=== PATIENT | female | born 1985 | race American Indian/Alaskan Native ===

== ENCOUNTER 2020-05-09 04:47 | Emergency (ER) | payer BC ==
[2020-05-09 06:30] LABS: Basophils # (Auto) 0.1 K/mm3 (0.0-0.1); Basophils % (Auto) 0.4 % (0.0-1.8); Hematocrit 39.5 % (30.3-42.9); Hemoglobin 12.9 gm/dl (10.1-14.3); Lymphocytes # (Auto) 0.9 K/mm3 (1.2-5.4); Lymphocytes % (Auto) 6.3 % (13.4-35.0); Mean Corpuscular HGB Conc 33 % (30-34); Mean Corpuscular Volume 80 fl (79-97); Monocytes # (Auto) 0.5 K/mm3 (0.0-0.8); Monocytes % (Auto) 3.4 % (0.0-7.3); Platelet Count 289 K/mm3 (140-440); Red Blood Count 4.95 M/mm3 (3.65-5.03); Red Cell Distribution Width 13.9 % (13.2-15.2)
--- NOTE | 2020-05-09 06:38 | XRay Report ---
CHEST 2 VIEWS INDICATION / CLINICAL INFORMATION: COVID POSITIVE. COMPARISON: None available. FINDINGS: SUPPORT DEVICES: None. HEART / MEDIASTINUM: No significant abnormality. LUNGS / PLEURA: Mild bilateral parenchymal disease No pneumothorax. ADDITIONAL FINDINGS: No significant additional findings. IMPRESSION: 1. Mild bilateral pneumonia Signer Name: Willy Ventura MD Signed: 05/09/2020 6:34 AM Workstation Name: [id number]
[2020-05-09 06:52] LABS: Alanine Aminotransferase 17 units/L (7-56); Albumin 3.8 g/dL (3.9-5); BUN/Creatinine Ratio 18; Blood Urea Nitrogen 16 mg/dL (7-17); Calcium 8.4 mg/dL (8.4-10.2); Hemolysis Index 0
[2020-05-09] MEDS ORDERED: ONDANSETRON 4 MG/2 ML INJ IV ONE (08:16)
[2020-05-09] MEDS ORDERED: INSULIN REGULAR, HUMAN 100 UNITS/1 ML IV ONE ×2 (08:16→12:40)
[2020-05-09] MEDS ORDERED: SODIUM CHLORIDE 0.9% 1000 ML 1,000 ML IV ONE ×2 (08:16→12:40)
[2020-05-09] MEDS ORDERED: ACETAMINOPHEN 500 MG TAB PO ONE (08:57)
--- NOTE | 2020-05-09 08:58 | Emergency Department Report ---
ED N/V/D HPI - General Chief complaint: Nausea/Vomiting/Diarrhea Stated complaint: 1985 Time Seen by Provider: 05/09/20 08:03 Source: patient Mode of arrival: Ambulatory Limitations: No Limitations - History of Present Illness Initial comments: 34-year-old female, history of type 1 diabetes, presents to ED with vomiting and diarrhea. Patient became symptomatic with COVID-19 11 days ago. Patient tested positive for COVID-19 8 days ago. Patient reports her symptoms have been sneezing, cough, fever, fatigue, vomiting, diarrhea. Patient came to the ED because she is feeling weak. She reports some mild shortness of breath with ambulation. She denies any loss of smell or taste. MD complaint: nausea, vomiting, diarrhea -: days(s) (11) Description of Vomiting: food contents Description of Diarrhea: water Associated Abdominal Pain: No Severity: moderate Improves with: none Worsens with: none Associated Symptoms: cough, fever/chills, malaise, nausea/vomiting, shortness of breath, weakness - Related Data Previous Rx's Medication Instructions Recorded Last Taken Type Ondansetron [Zofran Odt] 4 mg PO Q8HR PRN #20 tab.rapdis 05/09/20 Unknown Rx Allergies Allergy/AdvReac Type Severity Reaction Status Date / Time No Known Allergies Allergy Verified 05/09/20 05:19 ED Review of Systems ROS: Stated complaint: 1985 Other details as noted in HPI Comment: All other systems reviewed and negative Constitutional: chills, fever ENT: other (Denies loss of smell or taste) Respiratory: cough, SOB with exertion Gastrointestinal: nausea, vomiting, diarrhea ED Past Medical Hx - Past Medical History Previous Medical History?: No - Surgical History Past Surgical History?: No - Social History Smoking Status: Never Smoker Substance Use Type: None - Medications Home Medications: Home Medications Medication Instructions Recorded Confirmed Last Taken Type Ondansetron [Zofran Odt] 4 mg PO Q8HR PRN #20 tab.rapdis 05/09/20 Unknown Rx ED Physical Exam - General Limitations: No Limitations General appearance: alert, in no apparent distress - Head Head exam: Present: atraumatic, normocephalic - Eye Eye exam: Present: normal appearance, EOMI - ENT ENT exam: Present: mucous membranes moist - Neck Neck exam: Present: normal inspection - Respiratory Respiratory exam: Present: normal lung sounds bilaterally. Absent: respiratory distress - Cardiovascular Cardiovascular Exam: Present: normal rhythm, tachycardia - GI/Abdominal GI/Abdominal exam: Present: soft. Absent: distended, tenderness - Extremities Exam Extremities exam: Present: normal inspection - Neurological Exam Neurological exam: Present: alert, oriented X3 - Psychiatric Psychiatric exam: Present: normal affect, normal mood - Skin Skin exam: Present: warm, dry, intact, normal color ED Course Vital Signs 05/09/20 05/09/20 05:17 08:02 Temperature 100.2 F H Pulse Rate 122 H Respiratory 20 18 Rate Blood Pressure 136/89 O2 Sat by Pulse 98 100 Oximetry ED Medical Decision Making - Lab Data Result diagrams: 05/09/20 06:17 05/09/20 11:11 - Radiology Data Radiology results: report reviewed, image reviewed - Medical Decision Making 34-year-old female, COVID-19 positive, presents to ED with nausea, vomiting, generalized weakness. Chest x-ray is normal. Patient is not hypoxic, even with ambulation O2 sat remains normal. Covid markers mildly elevated, ferritin is normal. Glucose is 481, however patient does not appear to be in DKA as her VBG is 7.43. Bicarb is slightly low at 20, anion gap of 23. 1 L bolus of IV fluids along with 8 units of insulin. Repeat BMP shows improvement of glucose to 392, now with bicarb of 22 and anion gap improvement to 21. Patient was then given a second IV fluid bolus and a repeat dose of insulin. Her current Accu-Chek is 313. Patient states she is feeling much better at this time and feels comfortab le with discharge home. No emesis or diarrhea during observation here in the ED. Patient advised to purchase a pulse oximeter so that she can monitor her O2 sats at home. Return precautions given. - Differential Diagnosis COVID-19, DKA, pneumonia, hypoxia Critical care attestation.: If time is entered above; I have spent that time in minutes in the direct care of this critically ill patient, excluding procedure time. ED Disposition Clinical Impression: COVID-19, Hyperglycemia Disposition: DC-01 TO HOME OR SELFCARE Is pt being admited?: No Condition: Stable Instructions: Hyperglycemia, [id number], COVID-19 Additional Instructions: Your oxygen was normal today. Your chest x-ray was normal today. It is advised that you purchase a pulse oximeter so that you can check your oxygen level at home. If your oxygen drops below 92%, return to the ER. Return to the ER if any of your symptoms worsen. Referrals: PRIMARY CARE, [Primary Care Provider] - 3-5 Days Time of Disposition: 15:19
[2020-05-09 09:16] LABS: C-Reactive Protein 8.5 mg/dL (0.00-1.30)
[2020-05-09 12:15] LABS: BUN/Creatinine Ratio 18; Blood Urea Nitrogen 16 mg/dL (7-17); Calcium 8.1 mg/dL (8.4-10.2); Hemolysis Index 3
[2020-05-09 15:14] VITALS: BP 120/73
== END 2020-05-09 15:41 | disposition home or self-care (01) ==
LOC: EDBD → ED 04:47
DX: U07.1 COVID-19 (principal); R73.9 Hyperglycemia, unspecified; Z79.899 Other long term (current) drug therapy
CPT/HCPCS: 36415; 71046; 80048; 80053; 82728; 82805; 82962; 83615; 84145; 85025; 85379; 86140; 96361; 96374; 96375; 96376; 99284; J2405; J7030; J1815